=== PATIENT | male | born 1980 | race Caucasian/White ===

== ENCOUNTER 2023-01-11 12:41 | Emergency (ER) | payer BC ==
[~2023-01-11] VITALS: Ht 182.9 cm; Wt 86.2 kg
[~2023-01-11 12:41] MED LIST: CYCLOBENZAPRINE10 MG PO; NORCO 5-325 TA1 EACH PO; PERCOCET 5-3251 EACH PO; ULTRAM50 MG
[2023-01-11] MEDS ORDERED: CEPHALEXIN500 M1 PO (15:55)
[2023-01-11 16:14] VITALS: BP 121/72
== END 2023-01-11 16:18 | disposition home or self-care (01) ==
LOC: ED 12:41
DX: M71.562 Other bursitis, not elsewhere classified, left knee (principal); F17.200 Nicotine dependence, unspecified, uncomplicated; Z88.0 Allergy status to penicillin
CPT/HCPCS: A9270